=== PATIENT | male | born 1985 | race Caucasian/White ===

== ENCOUNTER 2025-03-01 20:49 | Emergency (ER) | payer OTHER, SELFPAY ==
[2025-03-01 20:51] VITALS: BP 167/109
--- NOTE | 2025-03-01 22:12 | ED.GENMED ---
History of Present Illness
General
Chief Complaint: Male Genito-Urinary Symptoms
Source: patient
Exam Limitations: none
Time Seen by Provider: 03/01/25 22:01
History of Present Illness
History of Present Illness:
See MDM
Past History
Past History
ED Past Medical History: None
ED Past Surgical History: None
Social History
Tobacco: Non-smoker
Alcohol: None
Phy Exam
Physical Exam
Physical Exam:
See MDM
Course
Orders/Labs/Results
Orders:
Orders
03/01/25 20:54
US Scrotum Urgent
Comment:
Reason For Exam: testicular pain
03/01/25 22:05
UA Reflex to Culture [Urinalysis Reflex To Culture] Urgent
Date Specimen was Collected: 03/01/25
Time Specimen was Collected: 22:02
Urine Microscopic Reflex Cult Urgent
03/01/25 22:09
CT Abd/pelvis W Iv Cont Urgent
Comment:
Reason For Exam: LLQ pain radiating into groin
Ketorolac [Toradol] 30 mg IV NOW STA
03/01/25 22:13
Complete Blood Count/With Diff Urgent
Comprehensive Metabolic Panel Urgent
03/02/25 00:41
LevoFLOXacin [Levaquin] 500 mg PO NOW STA
MetroNIDAZOLE [Flagyl] 500 mg PO NOW STA
Abnormal Lab Results
03/01/25 03/01/25
22:05 22:13
WBC 13.3 H 10^3/uL
(4.8-10.8)
Absolute Neuts (auto) 8.7 H 10^3/uL
(1.4-6.5)
Absolute Monos (auto) 1.5 H 10^3/uL
(0.1-0.6)
Monocytes % 11.3 H %
(1.7-9.3)
Ur Occult Blood Reflex 1+ A
(Negative)
Urine RBC 3-6 A /HPF
(0-2)
Urine Bacteria (Reflex) Few A
(Negative)
03/01/25 22:13
03/01/25 22:13
Vital Signs
Initial and Last Documented VS:
Initial Vital Signs
Temp Pulse Resp BP Pulse Ox
98.5 F 92 20 167/109 99
03/01/25 20:51 03/01/25 20:51 03/01/25 20:51 03/01/25 20:51 03/01/25 20:51
Last Documented Vital Signs
Temp Pulse Resp BP Pulse Ox
98.7 F 87 16 126/82 97
03/02/25 00:19 03/02/25 00:19 03/02/25 00:19 03/02/25 00:19 03/02/25 00:19
MDM/Problems Addressed
Differential Diagnosis Includes:
Note:
CHIEF COMPLAINT(S)
Pain in the scrotal area.
HISTORY OF PRESENT ILLNESS
The patient is a 39-year-old male with no significant past medical history, who presented with pain in the scrotal region. The pain started earlier today, around two oclock in the afternoon, and has been progressively worsening. The patient
describes the pain as initially located lower and then radiating. He reports that he has never experienced similar symptoms before. The patient denies any recent heavy lifting, dysuria, or concern for sexually transmitted diseases. On examination,
notable tenderness and swelling were observed primarily on the left side of the scrotum. The patient reports the most tenderness at the back of the scrotum, specifically on the left side, and tenderness was also noted in the abdomen.
PHYSICAL EXAM
General: Alert, no acute distress.
Skin: Warm, dry.
Head: Normocephalic, atraumatic
Neck: Appears supple, trachea midline.
Eyes, Ears, Nose, Mouth, and Throat: Moist mucous membranes
Cardiovascular: No signs of cyanosis
Respiratory: Respirations are non-labored.
Abdomen: Non-distended. Mild tenderness noted to palpation of left lower quadrant
: Tenderness and localized to palpation of left epididymis. Cremasteric reflex intact. No skin changes
Musculoskeletal: No deformities
Neurological: No focal neurological deficit observed.
Psychiatric: Cooperative, appropriate mood and affect.
PLAN
- Obtain blood work.
- Order a CT scan to evaluate for kidney stones or hernia.
- Administer ketorolac for pain management.
DIFFERENTIAL DIAGNOSIS
The Differential Diagnosis includes, in no particular order and is not limited to:
- Hernia
- Kidney stone
- Epididymitis
- Testicular torsion
- Testicular infection
- Testicular tumor
- Hydrocele
- Varicocele
- Trauma
- Referred abdominal pain
SUMMARY OF ENCOUNTER
The patient presented to the emergency department with acute scrotal pain that began earlier in the day and progressively worsened. An examination revealed swelling and tenderness on the left side of the scrotum. Differential diagnosis included
possibilities such as hernia, kidney stones, and epididymitis. A decision was made to conduct blood work and order a CT scan to further assess the potential causes of his symptoms. Ketorolac was administered for pain management.
MEDICATION RECONCILIATION
- Ketorolac was administered during the visit for pain management.
MEDICAL DECISION MAKING
- Number and Complexity of Problems Addressed: Chronic conditions affecting care [none mentioned]. Differential diagnosis consideration includes hernia, kidney stone, epididymitis, and others.
- Data:
- Category 1: Ordered a CT scan.
- Category 3: Based on clinical examination and symptoms, further imaging and lab tests are required to ascertain the cause of the scrotal pain.
- Risk: Moderate risk due to acute symptom presentation necessitating imaging studies for further evaluation.
SUMMARY OF ENCOUNTER
The patient presented with scrotal pain in addition to left lower quadrant abdominal pain. An ultrasound was conducted, which showed evidence of epididymitis. A CT scan was obtained due to concerns for acute uncomplicated diverticulitis, given the
presence of left lower quadrant pain. The decision was made to treat with levofloxacin to address both conditions and add metronidazole to treat the diverticulitis. Ketorolac was administered for pain management, and the patient reported feeling
better and comfortable with going home.
DISPOSITION
Discharge.
ASSESSMENT
The patient is likely experiencing epididymitis and acute uncomplicated diverticulitis based on imaging and symptom presentation.
EMERGENCY TREATMENTS ADMINISTERED
Ketorolac was administered for pain management.
PLAN
- Treat with levofloxacin to cover epididymitis and possible diverticulitis.
- Administer metronidazole to specifically address diverticulitis.
- Discharge with instructions to follow up if symptoms worsen.
INDEPENDENT REVIEW OF LABS AND INTERPRETATION OF TESTS
- My independent interpretation of the ultrasound shows evidence of epididymitis.
- My independent interpretation of the CT scan indicates acute uncomplicated diverticulitis.
MEDICATION RECONCILIATION
- Administered levofloxacin for the treatment of epididymitis and possible diverticulitis.
- Administered metronidazole for diverticulitis.
- Administered ketorolac during the visit for pain management.
MEDICAL DECISION MAKING
- Complexity of Data Reviewed: The differential diagnosis included epididymitis and acute uncomplicated diverticulitis based on imaging results and symptoms.
- Data:
- Category 1: Ultrasound and CT scan were independently reviewed and interpreted.
- Risk: Consideration of Admission/Observation: Escalation of care including admission/observation was considered given the complexity and risk of the patients presenting complaint and exam findings. However, ultimately, I feel the patient is safe
for outpatient management with close follow-up. Reasoning: Work-up reveals no acute life/organ-threatening processes, patient symptoms are well controlled upon reevaluation, reexamination is reassuring, vitals are stable, patient agreeable with
discharge, and reliable for follow-up.
DIAGNOSIS
- Epididymitis (ICD-10: N45.1)
- Acute Uncomplicated Diverticulitis (ICD-10: K57.32)
*Pulse Oximetry
SaO2: 99
Oxygen Mode of Delivery: Room air
Patient hypoxic: no
*Critical Care Note
Total Time (30-74mins, 75-104mins- exclusive of procedures): Not Applicable
ED Attending Note
-
Portions of this chart may have been created with voice recognition software.� Occasional wrong word or��sound alike� substitutions may have occurred due to the inherent limitations of voice recognition software.
Discharge Plan
Departure
Patient Disposition: Home (Routine Discharge)
Date of Disposition: 03/02/25
Time of Disposition: 00:42
Patient with high blood pressure during this ER visit?: No
Discharge Problem:
Epididymitis, Diverticulitis
Prescriptions:
New
metronidazole 500 mg Tablet
500 mg PO TID Qty: 21 0RF
levofloxacin 500 mg Tablet
500 mg PO DAILY Qty: 7 0RF
Referrals:
Ana Laura Flores PA-C [Family Provider, Family Practice]
Activity Restrictions/Additional Instructions:
Please return for any worsening symptoms.
You may return at any time if you have further concerns.
Please follow up with your doctor at the first available appointment, preferably this week.
Your Prescriptions were sent to the pharmacy on file.
Interventions
Interventions:
*General Assessment Last Done: 03/01/25 20:51
*Neglect/Abuse Screening Last Done: 03/01/25 20:51
*ED COVID-19 Vaccine History Last Done: 03/01/25 22:03
*ED Influenza Vaccine History Last Done: 03/01/25 22:03
[facility] Risk Assessment Tool Last Done: 03/01/25 22:04
*Risk Screen - Suicide (C-SSRS) Last Done: 03/01/25 22:03
ED-Male Genitourinary Assessment Last Done: 03/01/25 22:17
Discharge Date and Time
Print Language: LITHUANIAN
[2025-03-01] MEDS: TORADOL 30 MG IV (22:16)
[2025-03-01 22:17] VITALS: BP 142/92; BMI 27.4
[2025-03-01 22:21] LABS: Urine Character Clear (Clear)
[2025-03-01 22:22] LABS: Hematocrit 40.8 % (39.0-52.0); Hemoglobin 13.8 g/dL (13.0-18.0); Mean Corp Hgb Conc. 33.8 g/dL (33.0-37.0); Mean Corpuscular Volume 86.3 fL (80.0-94.0); Nucleated Red Blood Cells % 0 % (-); Platelet Count 225 10^3/uL (130-400); Red Cell Dist. Width 12.5 % (11.5-14.5)
[2025-03-01 22:28] LABS: Urine Squamous Cell 0-2 /LPF (Few)
[2025-03-01 22:29] LABS: Urine White Cell 0-2 /HPF (0-5)
[2025-03-01 22:37] LABS: ALT (SGPT) 20 U/L (0-50); AST (SGOT) 24 U/L (17-59); Albumin 4.8 g/dl (3.5-5.0); Alkaline Phosphatase 83 U/L (38-126); Blood Urea Nitrogen 18 mg/dl (9-20); Calcium 8.8 mg/dl (8.4-10.2); Carbon Dioxide 27 mmol/L (22-30); Chloride 103 mmol/L (98-107); Estimated Creatinine Clearance 96 ml/min; Glucose 96 mg/dl (70-99); Potassium 4.1 mmol/L (3.5-5.1); Sodium 139 mmol/L (135-145); Total Protein 7.8 g/dl (6.3-8.2); eGFR > 60.00
[2025-03-02 00:19] VITALS: BP 126/82
[2025-03-02] MEDS: LEVAQUIN 500 MG PO (01:04)
[2025-03-02] MEDS: FLAGYL 500 MG PO (01:05)
== END 2025-03-02 01:05 | disposition home or self-care (01) ==
LOC: EMR 20:49
PROVIDERS: EMERGENCY PHYSICIAN Student in an Organized Health Care Education/Training Program; FAMILY PHYSICIAN Physician Assistant Medical
DX: N45.1 Epididymitis (principal); K57.32 Diverticulitis of large intestine without perforation or abscess without bleeding
CPT/HCPCS: 99284; 96374; 74177; 76870; 80053; 81003; 81015; 85025; 93976; Q9967